=== PATIENT | male | born 1995 | race Caucasian/White ===

== ENCOUNTER 2016-10-21 | Emergency (ER) | payer OTHER ==
--- NOTE | 2016-10-22 00:40 | ED ---
General Adult HPI - General Chief complaint: ENT Stated complaint: Eye Problem Time Seen by Provider: 10/22/16 00:22 Source: patient, RN notes reviewed Mode of arrival: ambulatory Limitations: no limitations - History of Present Illness Initial comments: This is a 21-year-old male presents with drainage from the left eye that started today. Patient denies any foreign body in the eye or any foreign body sensation. Patient states she just noticed some white/milton drainage from the left eye just today. Patient denies any fever/chills, diplopia, blurred vision , any visual changes at all. Patient Denies any sick contacts, cough, congestion. Patient denies any ALLERGIES to medication. Patient denies any medical problems. Patient does admit to tobacco use denies alcohol or drug use.Patient denies any recent fever, chills, shortness breath, chest pain, abdominal pain, nausea/vomiting/diarrhea, back pain, numbness, tingling, hematuria, headache, or any other complaints. - Related Data Previous Rx's Medication Instructions Recorded Tobramycin 0.3% Ophth Soln [Tobrex 1 - 2 drop LEFT EYE Q4H 7 Days 10/22/16 0.3% Ophth Soln] Allergies Allergy/AdvReac Type Severity Reaction Status Date / Time No Known Allergies Allergy Verified 10/21/16 22:30 Review of Systems ROS Statement: Those systems with pertinent positive or pertinent negative responses have been documented in the HPI. ROS Other: All systems not noted in ROS Statement are negative. Past Medical History Past Medical History: No Reported History Additional Past Medical History / Comment(s): OPPOSITIONAL DEFIANT DISORDER; ASPERGER'S DISORDER; INSOMNIA History of Any Multi-Drug Resistant Organisms: None Reported Past Surgical History: No Surgical Hx Reported Past Psychological History: ADD/ADHD Smoking Status: Current every day smoker Past Alcohol Use History: Rare Past Drug Use History: None Reported General Exam - General Exam Comments Initial Comments: General: The patient is awake and alert, in no distress, and does not appear acutely ill. Eye: There is an area of pain to the mucosa of the lower left eyelid that is draining yellow/green pus with mild erythema. No foreign body noted on visualization or with inverted eyelids. Pupils are equal, round and reactive to light, extra-ocular movements are intact. No nystagmus. There is normal conjunctiva bilaterally. No signs of icterus. Visual acuity 20/20 bilaterally. Ears: TMs pink and pearly with intact cone of light bilaterally. Normal external ear canals. Nose: Nasal turbinates pink and moist. Mouth and throat: There are moist mucous membranes and no oral lesions. Neck: The neck is supple, there is no tenderness or JVD. Cardiovascular: There is a regular rate and rhythm. No murmur, rub or gallop is appreciated. Respiratory: Lungs are clear to auscultation, respirations are non-labored, breath sounds are equal. No wheezes, stridor, rales, or rhonchi. Musculoskeletal: Normal ROM, no tenderness. Strength 5/5. Sensation intact. Radial pulses equal bilaterally 2+. Neurological: A&O x 3. CN II-XII intact, There are no obvious motor or sensory deficits. Coordination appears grossly intact. Speech is normal. Skin: Skin is warm and dry and no rashes or lesions are noted. Psychiatric: Cooperative, appropriate mood & affect, normal judgment. Limitations: no limitations Course Vital Signs 10/21/16 22:27 Temperature 97.2 F L Pulse Rate 94 Respiratory 18 Rate Blood Pressure 143/83 O2 Sat by Pulse 100 Oximetry Medical Decision Making - Medical Decision Making Is a 21-year-old male presents with drainage from the left eye times one day. On physical exam there is an area of pain to the mucosa of the lower left eyelid that is draining yellow/green pus with mild erythema. No foreign body noted on visualization or with inverted eyelids. Pupils are equal, round and reactive to light, extra-ocular movements are intact. No nystagmus. There is normal conjunctiva bilaterally. No signs of icterus. Discussed the patient A COURSE OF ANTIBIOTIC EYEDROPS. DISCUSSED RETURN PARAMETERS. DISCUSSED CLOSE FOLLOW-UP WITH PATIENT'S PRIMARY CARE PHYSICIAN. Discussed that patient should follow up with PCP in one to 2 days or return to the [facility] for any worsening symptoms or for any further concerns. Patient was receptive to this plan and patient will be discharged home. I discussed his case with attending physician Dr. Zambrano who agrees the plan as stated above. Disposition Clinical Impression: Blepharitis of left eye Disposition: HOME SELF-CARE Condition: Good Instructions: Conjunctivitis (ED) Additional Instructions: Please use antibiotic drops as prescribed. Please follow-up with family doctor in the next 2 days of symptoms have not improved. Please return to emergency room if the symptoms increase or worsen or for any other concerns. Prescriptions: Tobramycin 0.3% Ophth Soln [Tobrex 0.3% Ophth Soln] 1 - 2 drop LEFT EYE Q4H 7 Days Referrals: Joe Haas MD [Primary Care Provider] - 1-2 days Abhinav Oneil MD [STAFF PHYSICIAN] - 1-2 days Time of Disposition: 00:40
== END 2016-10-22 00:52 | disposition home or self-care (01) ==
CPT/HCPCS: 99283

== ENCOUNTER 2016-11-09 04:09 | Emergency (ER) | payer OTHER ==
[2016-11-09 04:22] VITALS: TEMP 97.8
--- NOTE | 2016-11-09 04:29 | ED ---
General Adult HPI - General Chief complaint: Upper Respiratory Infection Stated complaint: general pain,congestion Time Seen by Provider: 11/09/16 04:15 Source: patient, RN notes reviewed Mode of arrival: ambulatory - History of Present Illness Initial comments: This is a 21-year-old male presents to the emergency department with past medical history significant for smoking. Patient states for the last 2 weeks had a cough but no sputum production. Patient states occasionally get some body aches but he does not have any body aches currently. Patient state he has not seen his primary medical care doctor for this. Patient states she also has some nasal congestion over the last 2 weeks as well. Patient denies any ear pain or shortness of air patient denies any chest pain or palpitations. Patient denies abdominal pain patient denies nausea vomiting or diarrhea. - Related Data Previous Rx's Medication Instructions Recorded Tobramycin 0.3% Ophth Soln [Tobrex 1 - 2 drop LEFT EYE Q4H 7 Days 10/22/16 0.3% Ophth Soln] Azithromycin [Zithromax Tri-Neo] 500 mg PO DAILY #3 tab 11/09/16 Allergies Allergy/AdvReac Type Severity Reaction Status Date / Time No Known Allergies Allergy Verified 10/21/16 22:30 Review of Systems ROS Statement: Those systems with pertinent positive or pertinent negative responses have been documented in the HPI. ROS Other: All systems not noted in ROS Statement are negative. Past Medical History Past Medical History: No Reported History Additional Past Medical History / Comment(s): OPPOSITIONAL DEFIANT DISORDER; ASPERGER'S DISORDER; INSOMNIA History of Any Multi-Drug Resistant Organisms: None Reported Past Surgical History: No Surgical Hx Reported Past Psychological History: ADD/ADHD Smoking Status: Current every day smoker Past Alcohol Use History: Rare Past Drug Use History: None Reported General Exam - General Exam Comments Initial Comments: GENERAL: Patient is well-developed and well-nourished. Patient is nontoxic and well- hydrated and is in no acute distress. ENT: Neck is soft and supple. No significant lymphadenopathy is noted. Oropharynx is clear. Moist mucous membranes. Neck has full range of motion without eliciting any pain. EYES: The sclera were anicteric and conjunctiva were pink and moist. Extraocular movements were intact and pupils were equal round and reactive to light. Eyelids were unremarkable. PULMONARY: Patient's lungs are clear CARDIOVASCULAR: Patient is tachycardic at about 110 beats a minute ABDOMEN: Soft and nontender with normal bowel sounds. SKIN: Skin is clear with no lesions or rashes and otherwise unremarkable. NEUROLOGIC: Patient is alert and oriented x3. Cranial nerves II through XII are grossly intact. Motor and sensory are also intact. Normal speech, volume and content. Symmetrical smile. MUSCULOSKELETAL: Normal extremities with adequate strength and full range of motion. LYMPHATICS: No significant lymphadenopathy is noted PSYCHIATRIC: Normal psychiatric evaluation. Course Vital Signs 11/09/16 04:15 Temperature 97.8 F Pulse Rate 130 H Respiratory 14 Rate Blood Pressure 153/79 O2 Sat by Pulse 98 Oximetry Medical Decision Making - Medical Decision Making EKG shows a sinus tachycardia at 103 bpm [place] interval is 150 QRS is 82 QT interval 3:30 QTC 432. Patient's EKG shows no ST segment elevation or depression or T wave abnormalities are noted. Chest x-ray shows signs of bronchitis. Patient received Zithromax in the emergency department and will be sent home on the same. Disposition Clinical Impression: Bronchitis Disposition: HOME SELF-CARE Condition: Good Instructions: Acute Bronchitis (ED) Prescriptions: Azithromycin [Zithromax Tri-Neo] 500 mg PO DAILY #3 tab Referrals: Joe Haas MD [Primary Care Provider] - 1-2 days Time of Disposition: 05:18
--- NOTE | 2016-11-09 05:06 | XR ---
EXAMINATION TYPE: XR chest 2V DATE OF EXAM: 11/09/2016 4:42 AM COMPARISON: NONE HISTORY: Difficulty in breathing TECHNIQUE: Frontal and lateral views of the chest are obtained. FINDINGS: There is no focal air space opacity, pleural effusion, or pneumothorax seen. The cardiac silhouette size is within normal limits. Peribronchial cuffing is noted bilaterally with possible mild chronic bronchitis changes. The osseou s structures are intact. IMPRESSION: 1. Possible mild bronchitis. 2. No focal pneumonia.
[2016-11-09] MEDS ORDERED: AZITHROMYCIN 500 MG TAB PO STA (05:17)
[2016-11-09 05:18] VITALS: BP 138/80; PULSE 99; RESP 16
== END 2016-11-09 05:23 | disposition home or self-care (01) ==
LOC: EC 04:09
DX: J40 Bronchitis, not specified as acute or chronic (principal); F17.200 Nicotine dependence, unspecified, uncomplicated
CPT/HCPCS: 71020; 93005; 99283